=== PATIENT | male | born 1975 | race Two or more races ===

== ENCOUNTER 2017-04-13 19:10 | Emergency (ER) | payer SELFPAY ==
[~2017-04-13] VITALS: Ht 165.1 cm; Wt 72.6 kg
[2017-04-13] MEDS ORDERED: MORPHINE SULFATE 4 MG/ML SYRG IV ONE (22:30)
[2017-04-13] MEDS ORDERED: ONDANSETRON HCL 4 MG/2 ML VIAL IV ONE (22:30)
[2017-04-14 03:40] VITALS: BP 117/79
== END 2017-04-14 02:46 | disposition home or self-care (01) ==
LOC: ER 19:15
DX: S82.041A Displaced comminuted fracture of right patella, initial encounter for closed fracture (principal); F10.129 Alcohol abuse with intoxication, unspecified; V43.52XA Car driver injured in collision with other type car in traffic accident, initial encounter; Y93.89 Activity, other specified; Y92.89 Other specified places as the place of occurrence of the external cause; Y99.8 Other external cause status
CPT/HCPCS: 29105; 73562; 96374; 96375; 99285; J2270; J2405; J7030